=== PATIENT | male | born 1960 | race American Indian/Alaskan Native ===

== ENCOUNTER 2018-05-22 11:23 | Day surgery (SDC) | payer MEDICAID ==
[~2018-05-22 11:23] MED LIST: IOPIDINE ONE; MYDRIACYL ONE; NEOFRIN ONE
[2018-05-22] MEDS ORDERED: MYDRIACYL OD ONE (11:40)
[2018-05-22] MEDS ORDERED: NEOFRIN OD ONE (11:40)
[2018-05-22] MEDS ORDERED: IOPIDINE OD ONE (11:40)
[2018-05-22 12:26] VITALS: BP 140/89
== END 2018-05-22 11:24 | disposition home or self-care (01) ==
LOC: OR 11:23
PROVIDERS: ATTEND Specialist
DX: H26.491 Other secondary cataract, right eye (principal); E78.00 Pure hypercholesterolemia, unspecified; I10 Essential (primary) hypertension; M19.90 Unspecified osteoarthritis, unspecified site; F32.9 Major depressive disorder, single episode, unspecified; F17.210 Nicotine dependence, cigarettes, uncomplicated; Z98.890 Other specified postprocedural states; Z79.82 Long term (current) use of aspirin; Z79.899 Other long term (current) drug therapy; Z98.42 Cataract extraction status, left eye; Z98.41 Cataract extraction status, right eye
CPT/HCPCS: 82962

== ENCOUNTER 2018-06-26 10:55 | Day surgery (SDC) | payer MEDICAID ==
[2018-06-26] MEDS ORDERED: NEOFRIN OS ONE (12:05)
[2018-06-26] MEDS ORDERED: MYDRIACYL OS ONE (12:05)
[2018-06-26] MEDS ORDERED: IOPIDINE OS ONE (12:05)
[2018-06-26 14:19] VITALS: BP 145/85
[2018-06-26] MEDS ORDERED: NEOFRIN ONE (14:35)
[2018-06-26] MEDS ORDERED: MYDRIACYL ONE (14:36)
[2018-06-26] MEDS ORDERED: IOPIDINE ONE (14:36)
== END 2018-06-26 10:56 | disposition home or self-care (01) ==
LOC: OR 10:55
PROVIDERS: ATTEND Specialist
DX: H26.492 Other secondary cataract, left eye (principal); I73.9 Peripheral vascular disease, unspecified; E78.00 Pure hypercholesterolemia, unspecified; F17.210 Nicotine dependence, cigarettes, uncomplicated; I10 Essential (primary) hypertension; M19.90 Unspecified osteoarthritis, unspecified site; F32.9 Major depressive disorder, single episode, unspecified; Z98.890 Other specified postprocedural states; Z79.82 Long term (current) use of aspirin; Z79.01 Long term (current) use of anticoagulants; Z98.42 Cataract extraction status, left eye; Z98.41 Cataract extraction status, right eye
CPT/HCPCS: 82962